=== PATIENT | female | born 1980 | race Caucasian/White ===

== ENCOUNTER 2018-11-22 10:06 | Emergency (ER) | payer MEDICAID ==
--- NOTE | 2018-11-22 11:47 | EDM.PDOC ---
ED HPI GENERAL MEDICAL PROBLEM - General Chief Complaint: Eye Problems Stated Complaint: L EYE MUCUS Time Seen by Provider: 11/22/18 11:15 Source of Information: Reports: Patient History Limitations: Reports: No Limitations - History of Present Illness INITIAL COMMENTS - FREE TEXT/NARRATIVE: patient presents today with concern for reddened eye, crusting around the eyelids, and slightly funny feeling in her eye. Her symptoms started last night. She's never had anything like this before. Does not wear contacts or glasses. No on else around has been sick. no pain with eye movement, no changes in vision She reports no recent history of upper respiratory congestion, allergies, cough , fever, chills or sweats. She has no significant medical history. 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: Musculoskeletal History: Reports: Fracture Neurological History: Reports: Brain Injury Endocrine/Metabolic History: Reports: Obesity/BMI 30+ - Infectious Disease History Infectious Disease History: Reports: Chicken Pox - Past Surgical History Female Surgical History: Reports: Section, Tubal Ligation Other Female Surgeries/Procedures: CS x 3 Neurological Surgical History: Reports: None Musculoskeletal Surgical History: Reports: Arthroscopic Knee, Arthroscopic Procedure, Knee Replacement Other Musculoskeletal Surgeries/Procedures:: bilat knee scopes, partial L knee replacement, 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 ED EXAM GENERAL W FULL EYE - Physical Exam Exam: See Below Text/Narrative:: general: Alert, very pleasant no acute distress. Right eye appears normal. Left eye has reddened conjunctiva, and some dry crusting is noted on the lids. There is slight redness above the eye which is nontender and appears to be from rubbing. The lids themselves are not swollen. With lamp exam does not show any corneal abrasion, dendritic patterns, or other abnormalities. Pupils are equal and reactive, vision is 20/20 and 2030 which is her baseline. She has no pain with eye movement. Facial muscles symmetric, no nasal congestion, no lymph nodes in the preauricular or cervical area. Course - Vital Signs Text/Narrative:: bacterial conjunctivitis, no systemic symptoms or concerns for infection. Eye exam does not show any corneal abrasion or concern for something else such as herpes at this time. Last Recorded V/S: Last Vital Signs Temp 36.3 C 11/22/18 10:14 Pulse 99 11/22/18 10:14 Resp 18 11/22/18 10:14 BP 99/71 11/22/18 10:14 Pulse Ox 100 11/22/18 10:14 Departure - Departure Time of Disposition: 11:42 Disposition: Home, Self-Care 01 Condition: Good Clinical Impression: Conjunctivitis - Discharge Information *PRESCRIPTION DRUG MONITORING PROGRAM REVIEWED*: Not Applicable *COPY OF PRESCRIPTION DRUG MONITORING REPORT IN PATIENT NADER: Not Applicable Prescriptions: Tobramycin [Tobrex] 5 ml OP QID 5 Days #1 drops Instructions: Bacterial Conjunctivitis Referrals: PCP,Not In Area [Primary Care Provider] - Additional Instructions: okay to return to work tomorrow. It should be improving in the next 24 hours, if it is not, or if your vision changes, you develop a fever, pain with movement of your eye, headache, or other concerning symptoms should get reevaluated by a physician. this infection is very contagious and spreads by contact. Be sure to use your own towel and washcloth and should wash them after 24 hours. Pillowcase should be washed after 24 hours as well. If other members of the house gets symptoms, should wipe doorknobs, faucets, and other items that are regularly used by everyone.
== END 2018-11-22 12:05 | disposition home or self-care (01) ==
LOC: FB.ED 10:06
DX: H10.89 Other conjunctivitis (principal); F17.210 Nicotine dependence, cigarettes, uncomplicated; Z91.040 Latex allergy status
CPT/HCPCS: 99282; 99283

== ENCOUNTER 2019-01-26 13:59 | Emergency (ER) | payer MEDICAID ==
--- NOTE | 2019-01-26 14:18 | EDM.PDOC ---
ED HPI GENERAL MEDICAL PROBLEM - General Chief Complaint: Genitourinary Problem Stated Complaint: PAIN IN RIGHT SIDE Time Seen by Provider: 01/26/19 14:15 Source of Information: Reports: Patient History Limitations: Reports: No Limitations - History of Present Illness INITIAL COMMENTS - FREE TEXT/NARRATIVE: 38-year-old female who reports onset of right flank pain at approximate 7:45 AM 2 days ago. It has been getting worse with time. No radiation of the pain. It has been a constant pain. It is an aching, throbbing and sharp pain. There has been nausea but no vomiting. She rates the pain as a 10/10. She reports that she has had no fevers. She's had no dysuria or hematuria. She does have a history of kidney stones in the past and this feels somewhat similar to that. She has been able to drink liquids but she has had no appetite. She reports the pain is somewhat worse when she takes a deep breath. No cough. She has had no shortness of breath. She reports that she uses IV methamphetamine but has not used in the past 2 days secondary to the pain. There are no other associated signs or symptoms. There are no other modifying factors. 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 Right Flank Pain Score (Numeric/FACES): 10 - Related Data Allergies Allergy/AdvReac Type Severity Reaction Status Date / Time latex Allergy Rash Verified 01/26/19 14:12 Home Meds: Home Meds Tobramycin [Tobrex] 5 ml OP QID 5 Days #1 drops 11/22/18 [Rx] Sulfamethoxazole/Trimethoprim [Bactrim Ds Tablet] 1 each PO BID 10 Days #20 tablet 01/26/19 [Rx] Past Medical History Genitourinary History: Reports: Renal Calculus Musculoskeletal History: Reports: Fracture Neurological History: Reports: Brain Injury Psychiatric History: Reports: Addiction (Methamphetamine abuse), Anxiety, Depression Endocrine/Metabolic History: Reports: Obesity/BMI 30+ - Infectious Disease History Infectious Disease History: Reports: Chicken Pox - Past Surgical History Female Surgical History: Reports: Section (3), Tubal Ligation Other Female Surgeries/Procedures: CS x 3 Musculoskeletal Surgical History: Reports: Arthroscopic Knee, Arthroscopic Procedure, Knee Replacement Other Musculoskeletal Surgeries/Procedures:: bilat knee scopes, partial L knee replacement, 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 Social & Family History - Tobacco Use Smoking Status *Q: Current Every Day Smoker - Caffeine Use Caffeine Use: Reports: Coffee, Soda - Alcohol Use Alcohol Use History: No - Recreational Drug Use Recreational Drug Use: Yes Recreational Drug Type: Reports: Amphetamines (Speed) (IV) Recreational Drug Use Frequency: Weekly - Living Situation & Occupation Occupation: Employed ED ROS GENERAL - Review of Systems Review Of Systems: See Below Constitutional: Reports: No Symptoms HEENT: Reports: No Symptoms Respiratory: Reports: No Symptoms Cardiovascular: Reports: No Symptoms GI/Abdominal: Reports: Nausea. Denies: Vomiting : Reports: Flank Pain (Right flank pain). Denies: Dysuria, Frequency, Hematuria Musculoskeletal: Reports: No Symptoms Skin: Reports: No Symptoms Neurological: Reports: No Symptoms Hematologic/Lymphatic: Reports: No Symptoms Immunologic: Reports: No Symptoms ED EXAM, RENAL/ - Physical Exam Exam: See Below Exam Limited By: No Limitations General Appearance: Alert, WD/WN, Moderate Distress Eye Exam: Bilateral Eye: EOMI, Normal Inspection, PERRL Ears: Normal External Exam Nose: Normal Inspection, Normal Mucosa, No Blood Throat/Mouth: Normal Voice, No Airway Compromise, Other (Dry mucous membranes) Head: Atraumatic, Normocephalic Neck: Normal Inspection, Supple, Non-Tender, Full Range of Motion Respiratory/Chest: No Respiratory Distress, Lungs Clear, Normal Breath Sounds, No Accessory Muscle Use, Chest Non-Tender Cardiovascular: Normal Peripheral Pulses, Regular Rate, Rhythm, No Edema, No JVD GI/Abdominal: Normal Bowel Sounds, Soft, Non-Tender, No Mass, Other (Tender over right posterior flank really at the CVA area) Extremities: Normal Range of Motion, Non-Tender, No Pedal Edema, Normal Capillary Refill Neurological: Alert, Oriented, CN II-XII Intact, Normal Cognition, No Motor/ Sensory Deficits Skin Exam: Warm, Dry, Intact, Normal Color, No Rash Course - Vital Signs Last Recorded V/S: Last Vital Signs Temp 36.4 C 01/26/19 14:13 Pulse 103 H 01/26/19 14:13 Resp 20 01/26/19 14:13 BP 118/82 01/26/19 14:13 Pulse Ox 100 01/26/19 14:13 - Orders/Labs/Meds Orders: Active Orders 24 hr Category Date Time Status Abdomen Pelvis wo Cont [CT] Stat Exams 01/26/19 15:03 Taken CULTURE URINE [RM] Stat Lab 01/26/19 14:04 Received Sodium Chloride 0.9% [Saline Flush] Med 01/26/19 14:20 Active 10 ml FLUSH ASDIRECTED PRN Peripheral IV Insertion Adult [OM.PC] Routine Oth 01/26/19 14:20 Ordered Medication Orders Sodium Chloride (Saline Flush) 10 ml FLUSH ASDIRECTED PRN PRN Reason: Keep Vein Open Labs: Laboratory Tests 01/26/19 01/26/19 01/26/19 Range/Units 14:20 14:20 14:30 WBC 13.2 H (4.5-12.0) X10-3/uL RBC 4.56 (3.23-5.20) x10(6)uL Hgb 14.1 (11.5-15.5) g/dL Hct 41.1 (30.0-51.3) % MCV 90.0 (80-96) fL MCH 31.0 (27.7-33.6) pg MCHC 34.4 (32.2-35.4) g/dL RDW 12.2 (11.5-15.5) % Plt Count 196 (125-369) X10(3)uL MPV 7.8 (7.4-10.4) fL Add Manual Diff Yes Neutrophils % (Manual) 89 H (46-82) % Band Neutrophils % 2 (0-6) % Lymphocytes % (Manual) 6 L (13-37) % Monocytes % (Manual) 3 L (4-12) % Sodium (135-145) mmol/L Potassium (3.5-5.3) mmol/L Chloride (100-110) mmol/L Carbon Dioxide (21-32) mmol/L BUN (7-18) mg/dL Creatinine (0.55-1.02) mg/dL Est Cr Clr Drug Dosing mL/min Estimated GFR (MDRD) (>60) BUN/Creatinine Ratio (9-20) Glucose (80-116) mg/dL Calcium (8.6-10.2) mg/dL Total Bilirubin (0.1-1.3) mg/dL AST (5-25) IU/L ALT (12-36) U/L Alkaline Phosphatase (56-112) IU/L Total Protein (6.0-8.0) g/dL Albumin (3.5-5.2) g/dL Globulin g/dL Albumin/Globulin Ratio Urine Color Yellow (YELLOW) Urine Appearance Slightly cloudy (CLEAR) Urine pH 6.0 (5.0-6.5) Ur Specific [place] 1.020 (1.010-1.025) Urine Protein 30 H (NEGATIVE) mg/dL Urine Glucose (UA) Normal (NORMAL) mg/dL Urine Ketones Negative (NEGATIVE) mg/dL Urine Occult Blood Large H (NEGATIVE) Urine Nitrite Positive H (NEGATIVE) Urine Bilirubin Negative (NEGATIVE) Urine Urobilinogen Normal (NEGATIVE) mg/dL Ur Leukocyte Esterase Large H (NEGATIVE) Urine RBC >100 H (0-5) Urine WBC >100 H (0-5) Ur Squamous Epith Cells Few H (NS,R,O) Urine Bacteria Many H (NS) Urine HCG, Qual Negative (NEGATIVE) 01/26/19 Range/Units 14:30 WBC (4.5-12.0) X10-3/uL RBC (3.23-5.20) x10(6)uL Hgb (11.5-15.5) g/dL Hct (30.0-51.3) % MCV (80-96) fL MCH (27.7-33.6) pg MCHC (32.2-35.4) g/dL RDW (11.5-15.5) % Plt Count (125-369) X10(3)uL MPV (7.4-10.4) fL Add Manual Diff Neutrophils % (Manual) (46-82) % Band Neutrophils % (0-6) % Lymphocytes % (Manual) (13-37) % Monocytes % (Manual) (4-12) % Sodium 137 (135-145) mmol/L Potassium 3.9 (3.5-5.3) mmol/L Chloride 102 (100-110) mmol/L Carbon Dioxide 27 (21-32) mmol/L BUN 7 (7-18) mg/dL Creatinine 0.8 (0.55-1.02) mg/dL Est Cr Clr Drug Dosing 91.01 mL/min Estimated GFR (MDRD) > 60 (>60) BUN/Creatinine Ratio 8.8 L (9-20) Glucose 75 L (80-116) mg/dL Calcium 8.4 L (8.6-10.2) mg/dL Total Bilirubin 0.7 (0.1-1.3) mg/dL AST 15 (5-25) IU/L ALT 19 (12-36) U/L Alkaline Phosphatase 84 (56-112) IU/L Total Protein 6.5 (6.0-8.0) g/dL Albumin 3.0 L (3.5-5.2) g/dL Globulin 3.5 g/dL Albumin/Globulin Ratio 0.9 Urine Color (YELLOW) Urine Appearance (CLEAR) Urine pH (5.0-6.5) Ur Specific [place] (1.010-1.025) Urine Protein (NEGATIVE) mg/dL Urine Glucose (UA) (NORMAL) mg/dL Urine Ketones (NEGATIVE) mg/dL Urine Occult Blood (NEGATIVE) Urine Nitrite (NEGATIVE) Urine Bilirubin (NEGATIVE) Urine Urobilinogen (NEGATIVE) mg/dL Ur Leukocyte Esterase (NEGATIVE) Urine RBC (0-5) Urine WBC (0-5) Ur Squamous Epith Cells (NS,R,O) Urine Bacteria (NS) Urine HCG, Qual (NEGATIVE) Meds: Medications Generic Name Dose Route Start Last Admin Trade Name Freq PRN Reason Stop Dose Admin Sodium Chloride 10 ml 01/26/19 14:20 Saline Flush FLUSH ASDIRECTED PRN Keep Vein Open Discontinued Medications Generic Name Dose Route Start Last Admin Trade Name Freq PRN Reason Stop Dose Admin Sodium Chloride 1,000 mls @ 999 mls/hr 01/26/19 14:20 01/26/19 14:37 Normal Saline IV 01/26/19 15:20 999 mls/hr .BOLUS ONE Administration Ceftriaxone Sodium 1 gm/ 50 mls @ 200 mls/hr 01/26/19 16:16 01/26/19 16:42 Sodium Chloride IV 01/26/19 16:30 200 mls/hr ONETIME ONE Administration Ketorolac Tromethamine 30 mg 01/26/19 15:04 01/26/19 15:13 Toradol IVPUSH 01/26/19 15:05 30 mg ONETIME ONE Administration Morphine Sulfate 4 mg 01/26/19 14:20 01/26/19 14:39 Morphine IVPUSH 01/26/19 14:21 4 mg ONETIME ONE Administration Ondansetron HCl 4 mg 01/26/19 14:20 01/26/19 14:39 Zofran IVPUSH 01/26/19 14:21 4 mg ONETIME ONE Administration - Radiology Interpretation Free Text/Narrative:: CT scan of the abdomen and pelvis showed right perinephric stranding with enlarged right kidney suggestive of possible pyelonephritis. There were no kidney stones or ureteral stones. This was per the radiologist at [facility] - Re-Assessments/Exams Free Text/Narrative Re-Assessment/Exam: 01/26/19 15:00: Urinalysis shows evidence of infection but also was positive for blood. She does have a history of kidney stones and her symptoms are concerning for a possible ureteral stone associated with an infection. I will send the urine for culture. I will also send the patient over for CT scan of her abdomen and pelvis without IV contrast. Prexy test is negative and I will also order Toradol 30 mg IV. 01/26/19 16:20: CT scan of the patient's abdomen and pelvis showed no evidence of kidney stone. There was evidence of pyelonephritis in the right kidney. The patient has received IV pain medication, morphine and Toradol, with good relief of her pain. I have ordered Rocephin 1 g IV to be given and I will discharge the patient on Bactrim DS twice a day for 10 days. She will be cleared for discharge and she may take ibuprofen and Tylenol as needed for pain. Departure - Departure Time of Disposition: 16:35 Disposition: Home, Self-Care 01 Condition: Good (Improved) Clinical Impression: Acute pyelonephritis - Discharge Information Prescriptions: Sulfamethoxazole/Trimethoprim [Bactrim Ds Tablet] 1 each PO BID 10 Days #20 tablet Referrals: PCP,None [Primary Care Provider] - Forms: ED Department Discharge, ED Return to Work/School Form Additional Instructions: Your blood tests were reassuring. Your urine test shows evidence of an infection. The CT scan of your abdomen and pelvis showed evidence of a right kidney infection. There was no evidence of a kidney stone. You appear to have a right kidney infection. You were given a dose of antibiotics in the emergency department and I have given you a prescription antibiotics (Bactrim DS). You should increase her fluid intake. You may take Tylenol and ibuprofen as needed for pain. Back to the emergency department for vomiting, worsening pain, high fever or any other concerning sign or symptom. - My Orders Last 24 Hours: My Active Orders 01/26/19 14:04 CULTURE URINE [RM] Stat 01/26/19 14:20 Sodium Chloride 0.9% [Saline Flush] 10 ml FLUSH ASDIRECTED PRN Peripheral IV Insertion Adult [OM.PC] Routine 01/26/19 15:03 Abdomen Pelvis wo Cont [CT] Stat - Assessment/Plan Last 24 Hours: My Active Orders 01/26/19 14:04 CULTURE URINE [RM] Stat 01/26/19 14:20 Sodium Chloride 0.9% [Saline Flush] 10 ml FLUSH ASDIRECTED PRN Peripheral IV Insertion Adult [OM.PC] Routine 01/26/19 15:03 Abdomen Pelvis wo Cont [CT] Stat
[2019-01-26] MEDS ORDERED: Ondansetron 4 MG/2 ML SDV IVPUSH ONE (14:20)
[2019-01-26] MEDS ORDERED: Morphine 2 MG/ML Syringe IVPUSH ONE (14:20)
[2019-01-26] MEDS ORDERED: Sodium Chloride 0.9% 10 ML Syringe FLUSH PRN (14:20)
[2019-01-26] MEDS ORDERED: Sodium Chloride 0.9% 1,000 ML IV ONE (14:20)
[2019-01-26] MEDS ORDERED: Ketorolac 30 MG/ML SDV IVPUSH ONE (15:04)
[2019-01-26] MEDS ORDERED: cefTRIAXone 1 GM in Sodium Chloride 0.9% 50 ML IV ONE (16:16)
== END 2019-01-26 17:00 | disposition home or self-care (01) ==
LOC: FB.ED 13:59
DX: N10 Acute pyelonephritis (principal); E66.9 Obesity, unspecified; F17.200 Nicotine dependence, unspecified, uncomplicated; Z91.040 Latex allergy status; Z68.29 Body mass index [BMI] 29.0-29.9, adult
CPT/HCPCS: 36415; 74176; 80053; 81001; 81025; 85025; 87086; 87088; 87186; 96361; 96374; 96375; 99284-25; J0696; J1885; J2270; J2405; J7030; J7050

== ENCOUNTER 2019-06-23 20:46 | Emergency (ER) | payer MEDICAID ==
[2019-06-23] MEDS: Ketorolac 60 MG/2 ML SDV IM ONE (21:11)
[2019-06-23] MEDS: Acetaminophen 500 MG Tab PO ONE (21:11)
[2019-06-23] MEDS: Cyclobenzaprine 10 MG Tab PO ONE (21:11)
--- NOTE | 2019-06-23 21:30 | EDM.PDOC ---
ED HPI GENERAL MEDICAL PROBLEM - General Chief Complaint: Lower Extremity Injury/Pain Stated Complaint: FELL Time Seen by Provider: 06/23/19 20:55 Source of Information: Reports: Patient History Limitations: Reports: No Limitations - History of Present Illness INITIAL COMMENTS - FREE TEXT/NARRATIVE: Patient presented to the ED because of left knee pain. She tripped and fell and landed on her left knee. She c/o pain over the lateral and medial aspect of the left knee,7/10 which is worse with ambulation. 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: Musculoskeletal History: Reports: Fracture Neurological History: Reports: Brain Injury Psychiatric History: Reports: Addiction (Methamphetamine abuse), Anxiety, Depression Endocrine/Metabolic History: Reports: Obesity/BMI 30+ - Infectious Disease History Infectious Disease History: Reports: Chicken Pox - Past Surgical History Female Surgical History: Reports: Section (3), Tubal Ligation Other Female Surgeries/Procedures: CS x 3 Musculoskeletal Surgical History: Reports: Arthroscopic Knee, Arthroscopic Procedure, Knee Replacement Other Musculoskeletal Surgeries/Procedures:: bilat knee scopes, partial L knee replacement, 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 Social & Family History - Family History Family Medical History: Noncontributory - Caffeine Use Caffeine Use: Reports: Coffee, Soda Other Caffeine Use: daily - Living Situation & Occupation Occupation: Employed Review of Systems - Review of Systems Review Of Systems: See Below Constitutional: Reports: No Symptoms Ears: Reports: No Symptoms Nose: Reports: No Symptoms Mouth/Throat: Reports: No Symptoms Respiratory: Reports: No Symptoms Cardiovascular: Reports: No Symptoms GI/Abdominal: Reports: No Symptoms Musculoskeletal: Reports: No Symptoms, Joint Pain Skin: Reports: No Symptoms ED EXAM, GENERAL - Physical Exam Exam: See Below Exam Limited By: No Limitations General Appearance: Alert, No Apparent Distress Ears: Normal External Exam Nose: Normal Inspection, Normal Mucosa, No Blood Throat/Mouth: Normal Inspection, Normal Lips, Normal Teeth Head: Atraumatic, Normocephalic Neck: Normal Inspection, Supple, Non-Tender Respiratory/Chest: No Respiratory Distress, Lungs Clear, Normal Breath Sounds Cardiovascular: Normal Peripheral Pulses, Regular Rate, Rhythm, No Edema Back Exam: Normal Inspection Extremities: Normal Inspection, Other (tenderness over the lateral and medial part of the left knee) Course - Vital Signs Text/Narrative:: xray of the left knee-neg,final reading is pending toradol 60 mg IM x1 Tylenol 1000 mg po x1 Flexeril 10 mg po x1 Last Recorded V/S: Last Vital Signs Temp 36.3 C 06/23/19 20:53 Pulse 97 06/23/19 20:53 Resp 16 06/23/19 20:53 BP 127/88 06/23/19 20:53 Pulse Ox 100 06/23/19 20:53 - Orders/Labs/Meds Orders: Active Orders 24 hr Category Date Time Status Knee 3V Lt [CR] Stat Exams 06/23/19 20:58 Taken Meds: Medications Discontinued Medications Generic Name Dose Route Start Last Admin Trade Name Freq PRN Reason Stop Dose Admin Acetaminophen 1,000 mg 06/23/19 21:05 06/23/19 21:11 Tylenol Extra Strength PO 06/23/19 21:06 1,000 mg ONETIME ONE Administration Cyclobenzaprine HCl 10 mg 06/23/19 21:05 06/23/19 21:11 Flexeril PO 06/23/19 21:06 10 mg ONETIME ONE Administration Ketorolac Tromethamine 60 mg 06/23/19 21:05 06/23/19 21:11 Toradol IM 06/23/19 21:06 60 mg ONETIME ONE Administration Departure - Departure Time of Disposition: 21:35 Disposition: Home, Self-Care 01 Condition: Good Clinical Impression: Left knee sprain - Discharge Information Prescriptions: Cyclobenzaprine [Flexeril] 10 mg PO TID PRN #15 tab PRN Reason: Spasms Ibuprofen 800 mg PO TID PRN #10 tablet PRN Reason: Pain Instructions: Knee Sprain, Adult, [id number] Referrals: PCP,None [Primary Care Provider] - Forms: ED Department Discharge Additional Instructions: Please read discharge instructions on sprain apply ice take the following medications at the same time for better pain relief. Ibuprofen 800 mg with tylenol 1000 mg and flexeril 10 mg 3 times daily as needed for pain and spasm. follow up as needed Sepsis Event Note - Evaluation Sepsis Screening Result: No Definite Risk - Focused Exam Vital Signs: Vital Signs Temp Pulse Resp BP Pulse Ox 06/23/19 20:53 36.3 C 97 16 127/88 100 Date Exam was Performed: 06/23/19 Time Exam was Performed: 22:11 - My Orders Last 24 Hours: My Active Orders 06/23/19 20:58 Knee 3V Lt [CR] Stat - Assessment/Plan Last 24 Hours: My Active Orders 06/23/19 20:58 Knee 3V Lt [CR] Stat
--- NOTE | 2019-06-24 11:58 | CR ---
INDICATION: Fall with left knee injury. LEFT KNEE: Three views of the left knee revealed mild hypertrophic degenerative changes at the intercondylar notch, medial intercondylar spine and medially and laterally off the tibia, as well as medially and laterally off the femur. Mild narrowing of the lateral femoral tibial joint space is suggested. There is slight increased density in the suprapatellar bursa raising question of a small knee joint effusion. Hypertrophic changes were also noted to a mild degree at the patellofemoral joint with joint space fairly well maintained. An acute fracture or dislocation was not identified. There are calcific densities in the subcutaneous tissues cranial to the patella , which may be on the basis of previous injury or possibly a phlebolith. IMPRESSION: 1. No acute fracture or dislocation. 2. Osteoarthritis. MTDD
== END 2019-06-23 22:55 | disposition home or self-care (01) ==
LOC: FB.ED 20:46
DX: S83.92XA Sprain of unspecified site of left knee, initial encounter (principal); E66.9 Obesity, unspecified; Z68.28 Body mass index [BMI] 28.0-28.9, adult; Z91.040 Latex allergy status; Z79.899 Other long term (current) drug therapy; W01.0XXA Fall on same level from slipping, tripping and stumbling without subsequent striking against object, initial encounter
CPT/HCPCS: 73562-LT; 96372; 99283; 99283-25; A9270-GY; J1885

== ENCOUNTER 2020-05-16 05:13 | Emergency (ER) | payer MEDICAID ==
[2020-05-16] MEDS ORDERED: traMADol 50 MG Tab PO ONE (05:14)
[2020-05-16] MEDS ORDERED: Lidocaine 2% 20 ML MDV INFILT ONE (05:14)
--- NOTE | 2020-05-16 05:35 | EDM.PDOC ---
ED HPI GENERAL MEDICAL PROBLEM - General Stated Complaint: ABSCESS Time Seen by Provider: 05/16/20 05:30 Source of Information: Reports: Patient History Limitations: Reports: No Limitations - History of Present Illness INITIAL COMMENTS - FREE TEXT/NARRATIVE: 39-year-old female with history of IV drug abuse reports 3 days ago she began to have pain and some redness around a else injection site in her right lower abdomen. She reports that over the past 3 days the redness and pain has progressively gotten worse with an area of hardness and questionable fluid collection in the center of this on the right side over the past. She reports the redness has actually spread across the abdominal wall to the left side as well. She reports that the pain is an 8/10. It is sharp, sore and stinging pain. She also reports that she has been having pain in her left upper thoracic back just medial to her left scapula for about the past week and a half. It is a sore pain that is sometimes sharp with movement and with palpation. She has had no trauma to the area. His pain is rated by her as a 6/10. There has been no cough or difficulty breathing. There has been no nausea or vomiting. She has been able to eat and drink normally. No fevers. She did feel somewhat chilled tonight when she was walking home from work but it was quite cold and she had to walk about 4 blocks. Does report that her significant other who lives with her has a cellulitis on his leg and was told that it was MRSA. There are no other associated signs or symptoms. There are no other modifying factors. Onset: Other (3 days ago for the abdominal wall abscess. 1-1/2 weeks ago for the left upper back pain.) Duration: Getting Worse Location: Reports: Abdomen, Back Quality: Reports: Ache, Sharp Severity: Moderate (to veer.) Improves with: Reports: Rest Worsens with: Reports: Other (Palpation), Movement Context: Reports: Other (As above.) Associated Symptoms: Reports: No Other Symptoms Treatments CHILD ADVOCATE: Reports: Other (see below) (Nothing.) Right Abdomen Pain Score (Numeric/FACES): 8 - Related Data Allergies Allergy/AdvReac Type Severity Reaction Status Date / Time latex Allergy Rash Verified 01/26/19 14:12 Home Meds: Home Meds Tobramycin [Tobrex] 5 ml OP QID 5 Days #1 drops 11/22/18 [Rx] Sulfamethoxazole/Trimethoprim [Bactrim Ds Tablet] 1 each PO BID 10 Days #20 tablet 01/26/19 [Rx] Cyclobenzaprine [Flexeril] 10 mg PO TID PRN #15 tab 06/23/19 [Rx] Ibuprofen 800 mg PO TID PRN #10 tablet 06/23/19 [Rx] Ibuprofen 800 mg PO TID PRN #30 tablet 06/25/19 [Rx] Amoxicillin/Clavulanate K [Augmentin 875-125 MG] 1 tab PO BID 10 Days #20 tablet 05/16/20 [Rx] Doxycycline [Vibra-Tabs] 100 mg PO BID 10 Days #20 tablet 05/16/20 [Rx] Past Medical History Genitourinary History: Reports: Renal Calculus Neurological History: Reports: Brain Injury Psychiatric History: Reports: Addiction (Methamphetamine abuse), Anxiety, Depression Endocrine/Metabolic History: Reports: Obesity/BMI 30+ - Infectious Disease History Infectious Disease History: Reports: Chicken Pox - Past Surgical History Female Surgical History: Reports: Section (3), Tubal Ligation Other Female Surgeries/Procedures: CS x 3 Musculoskeletal Surgical History: Reports: Arthroscopic Knee, Arthroscopic Procedure, Knee Replacement, Other (See Below) Other Musculoskeletal Surgeries/Procedures:: bilat knee scopes, partial L knee replacement, surgery bilat wrists Social & Family History - Tobacco Use Tobacco Use Status *Q: Current Every Day Tobacco User - Caffeine Use Caffeine Use: Reports: Coffee, Soda Other Caffeine Use: daily - Alcohol Use Alcohol Use History: No - Recreational Drug Use Recreational Drug Use: Yes Drug Use in Last 12 Months: Yes Recreational Drug Type: Reports: Methamphetamine Recreational Drug Use Frequency: Daily (IV drug abuse) - Living Situation & Occupation Occupation: Employed (Works at [employer] ED ROS GENERAL - Review of Systems Review Of Systems: See Below Constitutional: Reports: No Symptoms HEENT: Reports: No Symptoms Respiratory: Reports: No Symptoms Cardiovascular: Reports: No Symptoms Endocrine: Reports: No Symptoms GI/Abdominal: Reports: No Symptoms Musculoskeletal: Reports: Back Pain Skin: Reports: Erythema Neurological: Reports: No Symptoms Hematologic/Lymphatic: Reports: No Symptoms Immunologic: Reports: No Symptoms ED EXAM, SKIN/RASH Exam: See Below Exam Limited By: No Limitations General Appearance: Alert, Mild Distress (Appears in some pain. She does not appear toxic at this point.), Obese Eye Exam: Bilateral Eye: EOMI, Normal Inspection Ears: Normal External Exam, Hearing Grossly Normal Nose: Normal Inspection, Normal Mucosa, No Blood Throat/Mouth: Normal Inspection, Normal Lips, Normal Oropharynx, Normal Voice, No Airway Compromise Head: Atraumatic, Normocephalic Neck: Normal Inspection, Supple, Non-Tender, Full Range of Motion Respiratory/Chest: No Respiratory Distress, Lungs Clear, Normal Breath Sounds, No Accessory Muscle Use, Chest Non-Tender Cardiovascular: Normal Peripheral Pulses, Regular Rate, Rhythm, No Murmur Peripheral Pulses: 2+: Radial (L), Radial (R) GI/Abdominal: Normal Bowel Sounds, Soft, Tender (Tender and erythematous area on her right lower abdomen that is quite expansive covering the entire right lower abdomen with some redness that goes over to the left lower abdomen. In the center of this on the right lower abdomen, there is an indurated and fluctuant area.) Back Exam: Full Range of Motion, Paraspinal Tenderness (Tenderness over the left upper thoracic back just medial to the scapula), Other (No redness. No increased warmth. No fluctuant area.). No: Vertebral Tenderness Extremities: Normal Inspection, Normal Range of Motion, Non-Tender, No Pedal Edema, Normal Capillary Refill Neurological: Alert, Oriented, CN II-XII Intact, Normal Cognition, Normal Gait, No Motor/Sensory Deficits Psychiatric: Normal Affect Skin: Warm, Dry, No Rash, Erythema, Increased Warmth Location, Skin: Abdomen (Abdominal wall that is mostly on the right lower abdominal wall but redness extends over into the left lower abdominal wall.) Characteristics: Confluent, Erythematous Associated features: Warmth, Tenderness, Swelling, Inflammation (Indurated with what appears to be a fluctuant area that is about 4-5 cm in diameter.) ED SKIN PROCEDURES - I&D Skin Prep: Other (ChloraPrep) Local Anesthesia: Lidocaine: 2% Plain Local Anesthetic Volume: Other (12 amounts) Area Incised With: 11 Blade Drainage: Purulent Probed to Break Up Loculations: Yes Packed With: 1 in. Iodoform Sterile Dressing: Other (ABD pad) Complications: No Progress/Comments: Patient tolerated the procedure well without any complications. Course - Vital Signs Last Recorded V/S: Last Vital Signs Temp 36.5 C 05/16/20 05:21 Pulse 97 05/16/20 05:21 Resp 14 05/16/20 05:21 BP 148/86 H 05/16/20 05:21 Pulse Ox 99 05/16/20 05:21 - Orders/Labs/Meds Orders: Active Orders 24 hr Category Date Time Status CULTURE BLOOD [BC] Urgent Lab 05/16/20 06:25 Results CULTURE MRSA [RM] Stat Lab 05/16/20 06:56 Ordered Blood Culture x2 Reflex Set [OM.PC] Urgent Oth 05/16/20 05:52 Ordered Labs: Laboratory Tests 05/16/20 05/16/20 05/16/20 Range/Units 06:25 06:25 06:25 WBC 7.3 (3.0-10.3) x10-3/uL RBC 3.98 (3.60-5.20) x10(6)uL Hgb 12.0 (11.4-15.5) g/dL Hct 36.2 (34.2-48.2) % MCV 91.0 (76.7-100.5) fL MCH 30.2 (23.9-33.9) pg MCHC 33.2 (31.9-34.8) g/dL RDW 12.8 (12.3-16.5) % Plt Count 269 (151-488) x10(3)uL MPV 7.7 (7.1-12.4) fL Neut % (Auto) 63.5 (30.8-76.2) % Lymph % (Auto) 25.9 (18.4-52.1) % [place] % (Auto) 8.4 (4.4-15.7) % Eos % (Auto) 1.5 (0.6-8.1) % Baso % (Auto) 0.7 (0.2-1.5) % Neut # (Auto) 4.6 (1.5-6.3) x10-3/uL Lymph # (Auto) 1.9 (1.0-4.4) x10-3/uL [place] # (Auto) 0.6 (0.3-1.0) x10-3/uL Eos # (Auto) 0.1 (0.0-0.8) x10-3/uL Baso # (Auto) 0.1 (0.0-0.1) x10-3/uL Sodium 142 (135-145) mmol/L Potassium 3.8 (3.5-5.3) mmol/L Chloride 106 (100-110) mmol/L Carbon Dioxide 26 (21-32) mmol/L BUN 15 (7-18) mg/dL Creatinine 0.8 (0.55-1.02) mg/dL Est Cr Clr Drug Dosing 93.63 mL/min Estimated GFR (MDRD) > 60 (>60) BUN/Creatinine Ratio 18.8 (9-20) Glucose 86 (80-116) mg/dL Lactic Acid 1.0 (0.4-2.0) mmol/L Calcium 9.0 (8.6-10.2) mg/dL Total Bilirubin 0.4 (0.1-1.3) mg/dL AST 15 (5-25) IU/L ALT 20 (12-36) U/L Alkaline Phosphatase 95 (56-112) IU/L C-Reactive Protein (0.5-0.9) mg/dL Total Protein 6.9 (6.0-8.0) g/dL Albumin 3.3 L (3.5-5.2) g/dL Globulin 3.6 g/dL Albumin/Globulin Ratio 0.9 05/16/20 Range/Units 06:25 WBC (3.0-10.3) x10-3/uL RBC (3.60-5.20) x10(6)uL Hgb (11.4-15.5) g/dL Hct (34.2-48.2) % MCV (76.7-100.5) fL MCH (23.9-33.9) pg MCHC (31.9-34.8) g/dL RDW (12.3-16.5) % Plt Count (151-488) x10(3)uL MPV (7.1-12.4) fL Neut % (Auto) (30.8-76.2) % Lymph % (Auto) (18.4-52.1) % [place] % (Auto) (4.4-15.7) % Eos % (Auto) (0.6-8.1) % Baso % (Auto) (0.2-1.5) % Neut # (Auto) (1.5-6.3) x10-3/uL Lymph # (Auto) (1.0-4.4) x10-3/uL [place] # (Auto) (0.3-1.0) x10-3/uL Eos # (Auto) (0.0-0.8) x10-3/uL Baso # (Auto) (0.0-0.1) x10-3/uL Sodium (135-145) mmol/L Potassium (3.5-5.3) mmol/L Chloride (100-110) mmol/L Carbon Dioxide (21-32) mmol/L BUN (7-18) mg/dL Creatinine (0.55-1.02) mg/dL Est Cr Clr Drug Dosing mL/min Estimated GFR (MDRD) (>60) BUN/Creatinine Ratio (9-20) Glucose (80-116) mg/dL Lactic Acid (0.4-2.0) mmol/L Calcium (8.6-10.2) mg/dL Total Bilirubin (0.1-1.3) mg/dL AST (5-25) IU/L ALT (12-36) U/L Alkaline Phosphatase (56-112) IU/L C-Reactive Protein 6.8 H* (0.5-0.9) mg/dL Total Protein (6.0-8.0) g/dL Albumin (3.5-5.2) g/dL Globulin g/dL Albumin/Globulin Ratio Meds: Medications Discontinued Medications Generic Name Dose Route Start Last Admin Trade Name Freq PRN Reason Stop Dose Admin Ceftriaxone Sodium 1 gm 05/16/20 07:03 Rocephin IM 05/16/20 07:04 ONETIME ONE Doxycycline Hyclate 200 mg 05/16/20 07:03 Vibra-Tabs PO 05/16/20 07:04 ONETIME ONE - Re-Assessments/Exams Free Text/Narrative Re-Assessment/Exam: 05/16/20 07:05: Patient with marked cellulitis around a subcutaneous abscess on her right lower abdominal wall. Saline is actually extends over to the left lower abdominal wall. An I&D was formed and pus was expressed. The actual abscess was rather small but there was quite a bit of induration around it. This certainly looks to be a MRSA type infection. I will treat her however with Rocephin 1 g IM now and I will place her on doxycycline 100 mg twice daily with 200 mg po now. Her blood tests are. She does have an elevated CRP to 6.8 but her white blood cell count was normal. She does not appear toxic at this point. I have stressed with the patient that if this is not improving then she will need to have this area reevaluated and she would most probably need admission with IV antibiotics if this is worsening. I will give her 2 days off of work. She is to leave the packing in place until 05/17/2020. She should remove the packing at that point and then she will need to clean the area with soap and water in the shower and wash copiously with water until the area closes off. Departure - Departure Time of Disposition: 07:20 Disposition: Home, Self-Care 01 Condition: Good (Improved.) Clinical Impression: Abdominal wall cellulitis, IV drug abuse Subcutaneous abscess Qualifiers: Site of cutaneous abscess: trunk Site of cutaneous abscess of trunk: abdominal wall Qualified Code(s): L02.211 - Cutaneous abscess of abdominal wall - Discharge Information Prescriptions: Amoxicillin/Clavulanate K [Augmentin 875-125 MG] 1 tab PO BID 10 Days #20 tablet Doxycycline [Vibra-Tabs] 100 mg PO BID 10 Days #20 tablet Instructions: Cellulitis, Adult, [id number], Skin Abscess, [id number] Forms: ED Return to Work/School Form Additional Instructions: Your blood tests were reassuring. You did have some elevation of a marker of infection and inflammation but nothing pointing toward a blood infection at this point. The area of infection is rather extensive however and if it is not improving within the next day or if it worsens need to come back to an emergency department for reevaluation and he would possibly need admission with IV antibiotics. Leave the packing in place until tomorrow morning/midday and at that time, you should remove the packing and while in the shower you should clean the area with soap and lots of water. You should do this twice daily until he area closes off. Medications as prescribed (doxycycline 100 mg, Augmentin 875 mg). I did treat you with your first dose of the doxycycline and also an injection of an antibiotic called Rocephin. You do need to get your antibiotics filled and start taking them today. I also gave you a take-home pack of tramadol. You can take this as needed for moderate to severe pain. You can also take Tylenol and ibuprofen for pain as well. Back to an emergency department for spreading redness, fever, nausea and vomiting, trouble breathing, weakness or any other concerning sign or symptom. Sepsis Event Note (ED) - Evaluation Sepsis Screening Result: No Definite Risk - Focused Exam Vital Signs: Vital Signs Temp Pulse Resp BP Pulse Ox 05/16/20 05:21 36.5 C 97 14 148/86 H 99 - My Orders Last 24 Hours: My Active Orders 05/16/20 05:52 Blood Culture x2 Reflex Set [OM.PC] Urgent 05/16/20 06:25 CULTURE BLOOD [BC] Urgent 05/16/20 06:56 CULTURE MRSA [RM] Stat - Assessment/Plan Last 24 Hours: My Active Orders 05/16/20 05:52 Blood Culture x2 Reflex Set [OM.PC] Urgent 05/16/20 06:25 CULTURE BLOOD [BC] Urgent 05/16/20 06:56 CULTURE MRSA [RM] Stat
[2020-05-16] MEDS ORDERED: cefTRIAXone 1 GM Vial IM ONE (07:03)
[2020-05-16] MEDS ORDERED: Doxycycline 100 MG Tab PO ONE (07:03)
== END 2020-05-16 07:40 | disposition home or self-care (01) ==
LOC: FB.ED 05:13
DX: L02.211 Cutaneous abscess of abdominal wall (principal); L03.311 Cellulitis of abdominal wall; F19.10 Other psychoactive substance abuse, uncomplicated; E66.9 Obesity, unspecified; Z68.32 Body mass index [BMI] 32.0-32.9, adult; Z72.0 Tobacco use; Z91.040 Latex allergy status
CPT/HCPCS: 10060; 36415; 80053; 83605; 85025; 86140; 87040; 87070; 96372; 99284; A9270; J0696; 99283

== ENCOUNTER 2020-11-20 18:48 | Emergency (ER) | payer OTHER ==
--- NOTE | 2020-11-20 19:29 | EDM.PDOC ---
ED HPI GENERAL MEDICAL PROBLEM - General Chief Complaint: General Stated Complaint: R ARM INJURY Time Seen by Provider: 11/20/20 19:10 Source of Information: Reports: Patient History Limitations: Reports: No Limitations - History of Present Illness INITIAL COMMENTS - FREE TEXT/NARRATIVE: 40-year-old lady was moving a dresser with a mirror on it yesterday and the mirror fell and hit her on the lateral aspect of her right forearm just proximal to the wrist. Immediate pain and swelling. She tried treating injury at home with [id number] pain medications and ice. The pain increased in severity and she came to the emergency room for evaluation. She was in good health and remains in good health. She does not complain of chest pain, shortness of breath, nausea, vomiting, change in bowel or bladder habits, she has no known sick contacts and no flulike symptoms. 8 Pain Score (Numeric/FACES): 8 - Related Data Allergies Allergy/AdvReac Type Severity Reaction Status Date / Time latex Allergy Rash Verified 01/26/19 14:12 Home Meds: Home Meds Cyclobenzaprine [Flexeril] 10 mg PO TID PRN #15 tab 06/23/19 [Rx] Ibuprofen 800 mg PO TID PRN #10 tablet 06/23/19 [Rx] PARoxetine [Paxil] 20 mg PO DAILY 11/20/20 [History] Prazosin [Minpress] 2 mg PO BEDTIME 11/20/20 [History] Topiramate [Topamax] 100 mg PO DAILY 11/20/20 [History] buPROPion HCL [Wellbutrin Sr] 200 mg PO DAILY 11/20/20 [History] busPIRone [Buspar] 10 mg PO TID 11/20/20 [History] traZODone 150 mg PO BEDTIME 11/20/20 [History] Past Medical History Genitourinary History: Reports: Renal Calculus [employer] History: Reports: Other [employer] History: Three csections. Musculoskeletal History: Reports: Fracture Neurological History: Reports: Brain Injury Psychiatric History: Reports: Addiction, Anxiety, Depression Endocrine/Metabolic History: Reports: Obesity/BMI 30+ - Infectious Disease History Infectious Disease History: Reports: Chicken Pox - Past Surgical History Musculoskeletal Surgical History: Reports: Arthroscopic Knee, Arthroscopic Procedure, Knee Replacement, Other (See Below) Other Musculoskeletal Surgeries/Procedures:: bilat knee scopes, partial L knee replacement, surgery bilat wrists Social & Family History - Family History Family Medical History: No Pertinent Family History - Caffeine Use Caffeine Use: Reports: Soda Other Caffeine Use: daily - Living Situation & Occupation Occupation: Employed (Works at [employer] ED ROS GENERAL - Review of Systems Review Of Systems: See Below Constitutional: Reports: No Symptoms HEENT: Reports: No Symptoms Respiratory: Reports: No Symptoms Cardiovascular: Reports: No Symptoms Endocrine: Reports: No Symptoms GI/Abdominal: Reports: No Symptoms : Reports: No Symptoms Musculoskeletal: Reports: Arm Pain Skin: Reports: No Symptoms Neurological: Reports: No Symptoms Psychiatric: Reports: No Symptoms Hematologic/Lymphatic: Reports: No Symptoms Immunologic: Reports: No Symptoms ED EXAM, GENERAL - Physical Exam Exam: See Below Exam Limited By: No Limitations General Appearance: Alert, WD/WN, No Apparent Distress Eye Exam: Bilateral Eye: EOMI Head: Atraumatic, Normocephalic Neck: Normal Inspection. No: Lymphadenopathy (R), Lymphadenopathy (L) Respiratory/Chest: No Respiratory Distress, Lungs Clear, Normal Breath Sounds Cardiovascular: Normal Peripheral Pulses, Regular Rate, Rhythm, No Edema Peripheral Pulses: 2+: Radial (L), Radial (R), Dorsalis Pedis (L), Dorsalis Pedis (R) GI/Abdominal: Normal Bowel Sounds Back Exam: Normal Inspection Extremities: Arm Pain, Other (Erythema, edema, swelling, ecchymosis, of the right lateral forearm just proximal to the radial stylus. Patient is able to flex, extend, abduct and abduct her wrist and all 5 digits, sensation and capillary refill intact in all distal digits. ) Psychiatric: Normal Affect, Normal Mood Skin Exam: Warm, Dry, Intact Course - Vital Signs Text/Narrative:: View of x-rays of the right forearm shows no obvious fracture and no dislocation. Last Recorded V/S: Last Vital Signs Temp 36.9 C 11/20/20 19:15 Pulse 89 11/20/20 19:15 Resp 16 11/20/20 19:15 BP 146/105 H 11/20/20 19:15 Pulse Ox 99 11/20/20 19:15 - Orders/Labs/Meds Orders: Active Orders 24 hr Category Date Time Status Forearm 2V Rt [CR] Stat Exams 11/20/20 19:21 Ordered Departure - Departure Time of Disposition: 19:44 Disposition: Home, Self-Care 01 Condition: Good Clinical Impression: Hematoma and contusion - Discharge Information *PRESCRIPTION DRUG MONITORING PROGRAM REVIEWED*: Not Applicable *COPY OF PRESCRIPTION DRUG MONITORING REPORT IN PATIENT NADER: Not Applicable Instructions: Periosteal Hematoma Additional Instructions: Patient took 800 mg Motrin at approximately 1630. Patient was given 650 mg Tylenol in the emergency department. Patient was given a wrist brace, Lance wrap, advised to rest, ice, elevate, compress, alternate Tylenol and ibuprofen for pain relief. Patient will be given a note for work limiting her use to just her left hand for 2 weeks. Sepsis Event Note (ED) - Evaluation Sepsis Screening Result: No Definite Risk - Focused Exam Vital Signs: Vital Signs Temp Pulse Resp BP Pulse Ox 11/20/20 19:15 36.9 C 89 16 146/105 H 99 - My Orders Last 24 Hours: My Active Orders 11/20/20 19:21 Forearm 2V Rt [CR] Stat - Assessment/Plan Last 24 Hours: My Active Orders 11/20/20 19:21 Forearm 2V Rt [CR] Stat
[2020-11-20] MEDS ORDERED: Acetaminophen 325 MG Tab PO ONE (19:44)
--- NOTE | 2020-11-22 10:25 | CR ---
INDICATION: [place] mirror fell on arm. RIGHT FOREARM: Views of the right forearm revealed no evidence of an acute fracture or dislocation or other significant bone or joint abnormality. If symptoms persist - if occult fracture site is suspected clinically, re- examination in 10 to 14 days may be helpful. IROND
== END 2020-11-20 20:18 | disposition home or self-care (01) ==
LOC: FB.ED 18:48
DX: S50.11XA Contusion of right forearm, initial encounter (principal); E66.9 Obesity, unspecified; Z91.040 Latex allergy status; Z68.32 Body mass index [BMI] 32.0-32.9, adult; W18.09XA Striking against other object with subsequent fall, initial encounter; Y92.009 Unspecified place in unspecified non-institutional (private) residence as the place of occurrence of the external cause
CPT/HCPCS: 73090; 99283; A9270

== ENCOUNTER 2021-08-13 19:06 | Emergency (ER) | payer MEDICAID, OTHER ==
[2021-08-13] MEDS ORDERED: Sulfamethoxazole/Trimethoprim 800-160 MG Tab PO ONE (19:07)
[2021-08-13] MEDS ORDERED: cefTRIAXone 1 GM Vial IM ONE (19:37)
== END 2021-08-13 20:10 | disposition home or self-care (01) ==
LOC: FB.ED 19:06
DX: S80.861A Insect bite (nonvenomous), right lower leg, initial encounter (principal); L03.115 Cellulitis of right lower limb; E66.9 Obesity, unspecified; Z68.30 Body mass index [BMI] 30.0-30.9, adult; Z91.048 Other nonmedicinal substance allergy status; W57.XXXA Bitten or stung by nonvenomous insect and other nonvenomous arthropods, initial encounter
CPT/HCPCS: 96372; 99283; A9270-GY; J0696

== ENCOUNTER 2021-10-17 21:40 | Emergency (ER) | payer MEDICAID ==
[2021-10-17 22:50] LABS: ESTIMATED GFR 73 mL/min (>60)
[2021-10-17] MEDS ORDERED: Sodium Chloride 0.9% 10 ML Syringe FLUSH PRN (23:08)
[2021-10-17] MEDS ORDERED: amLODIPine 10 MG Tab PO STA (23:13)
[2021-10-17] MEDS ORDERED: Iopamidol 755 Mg/ML 75 ML Bottle IV ONE (23:19)
[2021-10-18] MEDS ORDERED: amLODIPine 10 MG Tab PO ONE (23:01)
== END 2021-10-18 01:15 ==
LOC: FB.ED 21:40
DX: R07.89 Other chest pain (principal); I10 Essential (primary) hypertension; E66.9 Obesity, unspecified; Z68.30 Body mass index [BMI] 30.0-30.9, adult; Z91.018 Allergy to other foods; Z91.040 Latex allergy status; Z79.899 Other long term (current) drug therapy; Z87.891 Personal history of nicotine dependence
CPT/HCPCS: 36415; 80053; 84484; 85025; 85379; 99285; A9270

== ENCOUNTER 2021-10-18 23:04 | Emergency (ER) | payer MEDICAID | END 2021-10-19 00:48 | LOC: FB.ED 23:04 | DX: R07.89 Other chest pain (principal); I10 Essential (primary) hypertension; E66.9 Obesity, unspecified; Z68.31 Body mass index [BMI] 31.0-31.9, adult; Z91.018 Allergy to other foods; Z91.040 Latex allergy status | CPT/HCPCS: 99285 ==

== ENCOUNTER 2021-12-13 14:03 | Emergency (ER) | payer MEDICAID, OTHER | END 2021-12-13 14:40 | disposition home or self-care (01) | LOC: FB.ED 14:03 | DX: R20.2 Paresthesia of skin (principal); E66.9 Obesity, unspecified; Z68.32 Body mass index [BMI] 32.0-32.9, adult; Z91.040 Latex allergy status; Z91.018 Allergy to other foods; Z86.16 Personal history of COVID-19 | CPT/HCPCS: 99284 ==